=== PATIENT | female | born 1995 | race Caucasian/White ===

== ENCOUNTER 2016-04-04 21:55 | Emergency (ER) | payer MEDICAID ==
[2016-04-04] MEDS ORDERED: Ibuprofen 400 MG TAB ONE (23:47)
[2016-04-04] MEDS ORDERED: CEFTRIAXONE 1 GM VIAL ONE (23:48)
== END 2016-04-05 01:03 | disposition home or self-care (01) ==
LOC: ER 21:55
DX: N30.01 Acute cystitis with hematuria (principal)
CPT/HCPCS: 81001; 81025; 87088; 96372

== ENCOUNTER 2016-04-13 14:05 | Emergency (ER) | payer MEDICAID | END 2016-04-13 15:21 | disposition home or self-care (01) | LOC: ER 14:05 | DX: N30.00 Acute cystitis without hematuria (principal); Z79.2 Long term (current) use of antibiotics | CPT/HCPCS: 81001; 87088; 87491; 87591 ==